=== PATIENT | male | born 1980 | race African-American/Black ===

== ENCOUNTER 2019-06-07 09:04 | Emergency (ER) | payer OTHER ==
[~2019-06-07] VITALS: Ht 180.3 cm; Wt 97.5 kg
[2019-06-07] MEDS ORDERED: PROAIR HFA8.5 GM INH (09:15)
[2019-06-07] MEDS ORDERED: NORCO 5-325 TA1 EAC1 PO (11:34)
[2019-06-07 11:44] VITALS: BP 128/84
== END 2019-06-07 11:45 | disposition home or self-care (01) ==
LOC: M.ERS 09:04
DX: S60.112A Contusion of left thumb with damage to nail, initial encounter (principal); J45.909 Unspecified asthma, uncomplicated; Z88.8 Allergy status to other drugs, medicaments and biological substances; W23.0XXA Caught, crushed, jammed, or pinched between moving objects, initial encounter; Y92.89 Other specified places as the place of occurrence of the external cause; Y93.89 Activity, other specified; Y99.8 Other external cause status